=== PATIENT | female | born 1950 ===

== ENCOUNTER 2021-11-21 18:37 | Inpatient (IN) | payer MEDICARE, OTHER ==
[~2021-11-21 18:37] MED LIST: Dexamethasone 20 MG/5 ML VIAL ONE; Lidocaine 1% PF 5 ML VIAL ONE; Ondansetron PF 4 MG/2 ML Vial ONE; PROPOFOL 200 MG/20 ML VIAL ONE; Phenylephrine 10 MG/ML VIAL ONE; Rocuronium Bromide 10 MG/ML (10ML VIAL) ONE; Succinylcholine 200 MG/10 ml SYRINGE FS ONE; ePHEDrine 50 MG/ML VIAL ONE
[2021-11-21] MEDS ORDERED: fentaNYL Citrate/PF 100 MCG/2 ML SYRINGE ONE (18:47)
[2021-11-21] MEDS ORDERED: niCARdipine 25 MG in Sodium Chloride 0.9% 250 ML 250 ML IVPB PRN (18:58)
[2021-11-21] MEDS ORDERED: Labetalol HCl 100 MG/20 ML VIAL SLOW IVP PRN (18:58)
[2021-11-21] MEDS ORDERED: hydrALAZINE 20 MG/ML VIAL SLOW IVP PRN (18:58)
[2021-11-21] MEDS ORDERED: Communication Order-Pharmacy FS SCH (18:58)
[2021-11-21] MEDS ORDERED: SUGAMMADEX SODIUM 200 MG/2 ML VIAL ONE (19:17)
[2021-11-21] MEDS ORDERED: Atorvastatin Calcium 40 MG TAB PO SCH (21:00)
[2021-11-21 21:17] LABS: #Lymphocytes 1.2 thou/uL (1.20-3.40); #Monocytes 0.4 thou/uL (0.11-0.59); #Neutrophils 10.8 thou/uL (1.40-6.50); %Basophils 0.2 % (0.0-1.0); %Eosinophils 0.1 % (0.0-10.0); %Lymphocytes 9.5 % (21.0-51.0); %Monocytes 3.1 % (0.0-10.0); %Neutrophils 87.1 % (42.0-75.0); Hemoglobin 10.6 g/dL (12.0-16.0); Mean Corpuscular HGB CONC 31.3 g/dL (32.0-36.0); Mean Corpuscular Hemoglobin 25.4 pg (27.0-31.0); Mean Corpuscular Volume 81.3 fL (78.0-98.0); Mean Platelet Volume 8.4 fL (7.4-10.4); Platelet Count 321 thou/uL (130-400); Red Blood Cell (RBC) Count 4.18 mill/uL (4.20-5.40); White Blood Cell (WBC) Count 12.4 thou/uL (4.8-10.8)
[2021-11-21 21:34] LABS: Anion Gap 14 mmol/L (10-20); BUN (Urea Nitrogen) 8 mg/dL (9.8-20.1); Calc. Creatinine Clearance 100 mL/min (70-130); Carbon Dioxide 18 mmol/L (23-31); Chloride 115 mmol/L (98-107); Estimated GFR 90; Glucose 142 mg/dL (80-115); Potassium 4.1 mmol/L (3.5-5.1); Sodium 143 mmol/L (136-145)
[2021-11-21] MEDS: Sodium Chloride 0.9% 1,000 ML IV SCH (21:49)
[2021-11-21] MEDS ORDERED: HYDROcodone/Acetaminophen 5/325 mg Tablet PO PRN (21:50)
[2021-11-21] MEDS: Fentanyl 100 MCG/2 ML VIAL SLOW IVP PRN ×2 (22:00→23:01)
[2021-11-22] MEDS: Fentanyl 100 MCG/2 ML VIAL SLOW IVP PRN ×6 (00:17→21:54)
[2021-11-22] MEDS ORDERED: Fentanyl 100 MCG/2 ML VIAL SLOW IVP SCH (01:30)
[2021-11-22] MEDS ORDERED: Non-Formulary Item 1 EACH (Tizanidine Hcl [Tizanidine Hcl] 4 MG Capsule) PO SCH (01:30)
[2021-11-22] MEDS ORDERED: Ondansetron PF 4 MG/2 ML Vial IVP PRN (01:32)
[2021-11-22] MEDS ORDERED: Ondansetron ODT 4 MG TAB PO PRN (01:32)
[2021-11-22] MEDS ORDERED: tiZANidine HCl 4 MG TAB PO SCH (01:45)
[2021-11-22] MEDS ORDERED: traZODone HCl 50 MG TAB PO SCH (02:45)
[2021-11-22] MEDS ORDERED: Fentanyl 100 MCG/2 ML VIAL SLOW IVP PRN (03:05)
[2021-11-22] MEDS ORDERED: NOREPINEPHRINE 8 MG/250 ML-D5W 250 ML IVPB SCH (03:30)
[2021-11-22] MEDS: Sodium Chloride 0.9% 1,000 ML IV SCH ×3 (03:38→20:00)
[2021-11-22 04:23] LABS: #Lymphocytes 0.5 thou/uL (1.20-3.40); #Monocytes 0.1 thou/uL (0.11-0.59); #Neutrophils 5.9 thou/uL (1.40-6.50); %Lymphocytes 7.9 % (21.0-51.0); %Monocytes 1.1 % (0.0-10.0); Hemoglobin 9.4 g/dL (12.0-16.0); Mean Corpuscular HGB CONC 31.4 g/dL (32.0-36.0); Mean Corpuscular Hemoglobin 25.2 pg (27.0-31.0); Mean Corpuscular Volume 80.2 fL (78.0-98.0); Mean Platelet Volume 8.5 fL (7.4-10.4); Platelet Count 268 thou/uL (130-400); RBC Distribution Width 14.9 % (11.5-14.5); Red Blood Cell (RBC) Count 3.73 mill/uL (4.20-5.40); White Blood Cell (WBC) Count 6.5 thou/uL (4.8-10.8)
[2021-11-22 04:38] LABS: Cardiac Risk 3.6 (Less than 4.5)
[2021-11-22 04:43] LABS: Anion Gap 12 mmol/L (10-20); BUN (Urea Nitrogen) 7 mg/dL (9.8-20.1); Calc. Creatinine Clearance 97 mL/min (70-130); Calcium 8.2 mg/dL (7.8-10.44); Carbon Dioxide 22 mmol/L (23-31); Chloride 110 mmol/L (98-107); Estimated GFR 88; Glucose 211 mg/dL (80-115); Sodium 140 mmol/L (136-145)
[2021-11-22] MEDS: Acetaminophen 325 MG TAB PO PRN (05:56)
[2021-11-22] MEDS: tiZANidine HCl 4 MG TAB PO SCH ×3 (09:31→21:47)
[2021-11-22] MEDS ORDERED: Nabumetone 500 MG TAB PO PRN (10:09)
[2021-11-22] MEDS: fentaNYL 50 mcg/hour Patch TD SCH ×2 (19:34→20:18)
[2021-11-22] MEDS ORDERED: Atorvastatin Calcium 40 MG TAB PO SCH (21:00)
[2021-11-23] MEDS: Fentanyl 100 MCG/2 ML VIAL SLOW IVP PRN ×9 (00:09→23:58)
[2021-11-23 03:42] LABS: #Basophils 0.1 thou/uL (0.0-0.2); #Lymphocytes 0.6 thou/uL (1.20-3.40); #Monocytes 0.5 thou/uL (0.11-0.59); #Neutrophils 7.6 thou/uL (1.40-6.50); %Basophils 0.6 % (0.0-1.0); %Lymphocytes 7.2 % (21.0-51.0); %Monocytes 5.8 % (0.0-10.0); %Neutrophils 86.4 % (42.0-75.0); Hemoglobin 8.5 g/dL (12.0-16.0); Mean Corpuscular HGB CONC 31.9 g/dL (32.0-36.0); Mean Corpuscular Hemoglobin 25.9 pg (27.0-31.0); Mean Corpuscular Volume 81.2 fL (78.0-98.0); Mean Platelet Volume 8.6 fL (7.4-10.4); Platelet Count 223 thou/uL (130-400); RBC Distribution Width 14.8 % (11.5-14.5); Red Blood Cell (RBC) Count 3.28 mill/uL (4.20-5.40); White Blood Cell (WBC) Count 8.8 thou/uL (4.8-10.8)
[2021-11-23 04:02] LABS: ALT (SGPT) 23 U/L (8-55); AST (SGOT) 24 U/L (5-34); Albumin 3.1 g/dL (3.4-4.8); Alkaline Phosphatase 51 U/L (40-110); Anion Gap 11 mmol/L (10-20); BUN (Urea Nitrogen) 12 mg/dL (9.8-20.1); Bilirubin, Total 0.2 mg/dL (0.2-1.2); Calc. Creatinine Clearance 102 mL/min (70-130); Calcium 8.4 mg/dL (7.8-10.44); Carbon Dioxide 21 mmol/L (23-31); Chloride 108 mmol/L (98-107); Estimated GFR 92; Globulin 2.5 g/dL (2.4-3.5); Glucose 135 mg/dL (80-115); Potassium 4.1 mmol/L (3.5-5.1); Protein, Total 5.6 g/dL (5.8-8.1); Sodium 136 mmol/L (136-145)
[2021-11-23] MEDS: Sodium Chloride 0.9% 1,000 ML IV SCH ×2 (04:21→21:56)
[2021-11-23] MEDS: tiZANidine HCl 4 MG TAB PO SCH ×3 (04:24→21:54)
[2021-11-23] MEDS: Levothyroxine 150 MCG TAB PO SCH (04:25)
[2021-11-23 04:58] VITALS: BMI 32.1
[2021-11-23] MEDS: Venlafaxine HCl XR 150 MG CAP PO SCH (08:50)
[2021-11-23] MEDS: DULoxetine 60 MG CAP PO SCH ×2 (08:51→08:56)
[2021-11-23] MEDS ORDERED: Aspirin 300 MG Suppository PR SCH (09:00)
[2021-11-23] MEDS ORDERED: Enoxaparin Sodium 40 MG/0.4 ML SYRINGE SC SCH (09:00)
[2021-11-23] MEDS ORDERED: Aspirin 325 mg Enteric Coated Tablet PO SCH (09:00)
[2021-11-23] MEDS: Acetaminophen 325 MG TAB PO PRN (14:46)
[2021-11-23] MEDS ORDERED: Rosuvastatin 20 MG TAB PO SCH (21:00)
[2021-11-24] MEDS: Fentanyl 100 MCG/2 ML VIAL SLOW IVP PRN ×4 (03:29→13:49)
[2021-11-24] MEDS: Levothyroxine 150 MCG TAB PO SCH (05:46)
[2021-11-24] MEDS: tiZANidine HCl 4 MG TAB PO SCH ×2 (06:23→15:51)
[2021-11-24] MEDS: DULoxetine 60 MG CAP PO SCH (09:43)
[2021-11-24] MEDS: Venlafaxine HCl XR 150 MG CAP PO SCH (09:44)
[2021-11-24] MEDS: Sodium Chloride 0.9% 1,000 ML IV SCH (09:46)
[2021-11-24 15:51] VITALS: TEMP 98.4
[2021-11-24 16:06] VITALS: BP 174/85
== END 2021-11-24 16:48 | DRG 23 ==
LOC: SDC 18:37 → CCU 19:00 → NEURO 11-23 19:47
PROVIDERS: ADMIT Neurological Surgery; ATTEND Hospitalist
PROC: 03CG3ZZ Extirpation of Matter from Intracranial Artery, Percutaneous Approach (ICD-10-PCS; principal; 2021-11-21)
PROC: B31R1ZZ Fluoroscopy of Intracranial Arteries using Low Osmolar Contrast (ICD-10-PCS; 2021-11-21)
DX: I63.511 Cerebral infarction due to unspecified occlusion or stenosis of right middle cerebral artery (principal); I61.9 Nontraumatic intracerebral hemorrhage, unspecified; G81.94 Hemiplegia, unspecified affecting left nondominant side; Z92.82 Status post administration of tPA (rtPA) in a different facility within the last 24 hours prior to admission to current facility; M32.9 Systemic lupus erythematosus, unspecified; M54.9 Dorsalgia, unspecified; M25.519 Pain in unspecified shoulder; M19.90 Unspecified osteoarthritis, unspecified site; G89.4 Chronic pain syndrome; R47.1 Dysarthria and anarthria; T45.615A Adverse effect of thrombolytic drugs, initial encounter; Z66 Do not resuscitate; I95.2 Hypotension due to drugs; T43.215A Adverse effect of selective serotonin and norepinephrine reuptake inhibitors, initial encounter; T40.5X5A Adverse effect of cocaine, initial encounter; I11.9 Hypertensive heart disease without heart failure; E78.5 Hyperlipidemia, unspecified; Z88.0 Allergy status to penicillin; Z88.2 Allergy status to sulfonamides; Z79.899 Other long term (current) drug therapy; Z79.890 Hormone replacement therapy; Z79.82 Long term (current) use of aspirin
CPT/HCPCS: 36415; 61645; 70450; 70551; 80048; 80053; 80061; 85025; C1769; C1894; J1100; J2370; J2405; J2704; J3010; J3490; J7050